=== PATIENT | male | born 1940 | race Caucasian/White ===

== ENCOUNTER 2023-01-11 07:55 | Outpatient (CLI) | payer MEDICARE, SELFPAY ==
--- NOTE | ~2023-01-11 | CT_ITS ---
Clinical Indication: COPD, abnormal liver enzymes, diarrhea, tachypnea CT Scan of the Chest, Abdomen, and Pelvis with Contrast: Technique: Contiguous sections were acquired throughout the chest, abdomen, and pelvis after intraven ous administration of 150 cc of Omnipaque 350. Dose reduction technique was used on this scan by uti lizing automated exposure control and iterative reconstruction technique. The dose-length product (DL P) was 453.47 mGy-cm. Findings: There is no evidence of any significant mediastinal, hilar or axillary lymphadenopathy. The mediastin al soft tissues appear normal. No large central pulmonary embolus. No aortic aneurysm or dissection. There is no evidence of pleural or pericardial effusion. There is moderate to advanced emphysema with biapical scarring. The liver, spleen, gallbladder, adrenals and kidneys are within normal limits. There is fatty infiltr ation the pancreas compatible atrophic changes, question mild peripancreatic inflammatory stranding. There are atherosclerotic calcifications of the aorta. No lymphadenopathy. No bowel obstruction or bowel wall thickening. There is no evidence to suggest acute appendicitis. Urinary bladder is unremarkable. Prostate gland is enlarged. Impression: Moderate to advanced emphysema with biapical scarring. Suspected mild pancreatitis. Correlate clinically. Enlarged prostate gland. Reviewed, dictated and finalized at [facility]. Impression: Moderate to advanced emphysema with biapical scarring. Suspected mild pancreatitis. Correlate clinically. Enlarged prostate gland.
--- NOTE | ~2023-01-11 | US_ITS ---
EXAMINATION: US carotid duplex BI DATE: 01/11/2023 10:25 INDICATION: Carotid bruit. TECHNIQUE: Grayscale, color Doppler, and pulsed Doppler images of the cervical carotid arteries were obtained. The degree of vessel stenosis is placed in one of the following categories: normal, <50%, 5 0-69%, >=70% but less than near-occlusion, near-occlusion, or total occlusion. Note that percent sten osis relative to normal distal artery lumen diameter is indirectly measured from velocity measurement s as described by Daniele, et al. Radiology 2003; 229:340-346. COMPARISON: None. FINDINGS: RIGHT: The right common carotid artery (CCA) peak systolic velocity (PSV) is 86 cm/s. The right internal car otid artery (ICA) PSV is 115 cm/s. The right ICA end-diastolic velocity (EDV) is 43 cm/s. The right I CA/CCA PSV ratio is 1.3. Grayscale and color Doppler images yield an estimate of <50% diameter reduct ion from plaque in the ICA. There is antegrade flow in the right vertebral artery. LEFT: The left CCA PSV is 93 cm/s. The left ICA PSV is 84 cm/s. The left ICA EDV is 32 cm/s. The left ICA/C CA PSV ratio is 0.9. Grayscale and color Doppler images yield an estimate of <50% diameter reduction from plaque in the ICA. There is antegrade flow in the left vertebral artery. IMPRESSION: 1. <50% stenosis in the right internal carotid artery. 2. <50% stenosis in the left internal carotid artery. Reviewed, dictated and finalized at location A.
--- NOTE | ~2023-01-11 | US_ITS ---
EXAMINATION: US arterial ankle brachial ind DATE: 01/11/2023 10:26 INDICATION: Peripheral arterial disease. TECHNIQUE: Segmental pressures and plethysmographic and Doppler waveforms of the brachial and lower e xtremity arteries were obtained. COMPARISON: None. FINDINGS: Right and left brachial artery pressures of 127 mm Hg and 125 mm Hg, respectively, are concordant (no rmal difference <= 30 mmHg). The right ankle-brachial index (JANNIE) is 0.91 (normal >= 0.9-1.0). The right great toe-brachial index (TBI) is 0.51 (normal >= 0.65). Arterial Doppler waveforms are biphasic at the ankle. The left JANNIE is 0.87. The left TBI is 0.50. Arterial Doppler waveforms are biphasic at the ankle. IMPRESSION: 1. Mildly decreased ABIs, consistent with arterial occlusive disease. Reviewed, dictated and finalized at location A.
--- NOTE | ~2023-01-11 | CT_ITS ---
EXAMINATION: CTA abd aorta runoff DATE: 01/11/2023 08:50 INDICATION: Peripheral arterial disease. TECHNIQUE: Computed tomographic angiography (CTA) of the abdominal, pelvis, and both lower extremitie s was performed with 150 mL Omnipaque-350 intravenous contrast. Automated exposure control and iterat dino reconstruction technique were employed. The dose-length product was 596.24 mGy-cm. Maximum intens ity projection 3D-reconstructions of the arteries were created by the technologist on a separate work station. COMPARISON: None. FINDINGS: ABDOMINAL AORTA AND ITS BRANCHES: Abdominal aorta is normal in caliber. There is calcified atherosclerosis of the aorta and many of the other arteries. There is no significant stenosis of celiac axis, superior mesenteric artery, the re nal arteries, or inferior mesenteric artery. PELVIC VASCULATURE: There is no significant stenosis of the common iliac arteries or external iliac arteries. There is mo derate stenosis of right internal iliac artery. RIGHT LOWER EXTREMITY VASCULATURE: There is mild stenosis of right common femoral artery and superficial femoral artery. There is no sig nificant stenosis of right deep femoral artery. There is no significant stenosis of popliteal artery, peroneal artery, anterior tibial artery, or posterior tibial artery. LEFT LOWER EXTREMITY VASCULATURE: There is mild stenosis of left common femoral artery and superficial femoral artery. There is no sign ificant stenosis of the deep femoral artery. There is no significant stenosis of popliteal artery, pe roneal artery, anterior tibial artery, or posterior tibial artery. ADDITIONAL FINDINGS: The visualized portions of the lung bases demonstrate emphysema and mild atelectasis. No pleural effu ellen. The heart size is normal. No pericardial effusion. Calcifications in the liver and spleen are c onsistent with old granulomatous disease. The gallbladder, pancreas, and adrenal glands are normal. T here are cysts in the kidneys measuring up to 6 mm on the right. There are no dilated loops of bowel. The appendix is normal. There is a mildly enlarged gastrohepatic lymph node, likely reactive. There is no free intraperitoneal fluid. The prostate is moderately enlarged. There is moderate lower lumbar spondylosis. IMPRESSION: 1. Bilateral three-vessel runoff. Reviewed, dictated and finalized at location A.
--- NOTE | 2023-01-11 08:24 | ECG_ITS ---
Measurements Intervals [place] Rate: 106 P: 84 ND: 146 QRS: 79 QRSD: 79 T: 64 QT: 329 QTc: 438 Interpretive Statements SINUS TACHYCARDIA BASELINE ARTIFACT- I, II, III, AVR, AVL, AVF, V1, V5-V6 ABNORMAL ECG NO PREVIOUS ECG AVAILABLE FOR COMPARISON Electronically Signed On 01-11-2023 10:32:11 CDT by Anirudh Montemayor D.O.
[2023-01-11 08:45] VITALS: PULSE 105; O2SAT 98
[2023-01-11 08:50] VITALS: PULSE 110; O2SAT 89
--- NOTE | 2023-01-11 09:01 | HOMEO2EVAL ---
Evaluation was performed at [facility] [place] Home Oxygen Evaluation RC: Home Oxygen (O2) Evaluation Start: 01/11/23 08:55 Freq: Status: Active Protocol: RPE Activity Type Activity Date Activity User E-sign Co-sign Detail Recorded Client Recorded Date Recorded By Document 01/11/23 08:45 TEODORA [email or web address] 01/11/23 09:00 SJB Document 01/11/23 08:50 SJB [email or web address] 01/11/23 09:00 SJB 01/11/23 01/11/23 08:45 08:50 Home O2 Evaluation [Oxygen] -Test Phase Resting Exercise -Oxygen Delivery Room Air Room Air [Pulse Oximetry] -Pulse Oximetry (90-100 %) 98 89 L [Pulse Rate] -Pulse Rate (60-100 beats/min) 105 H 110 H [Evaluation] -Activity Tolerance Good -Rating of Perceived Dyspnea (PD) +1 Mild, Noticeable to the Participant but Not to an Observer -Rate of Perceived Exertion (PE) 11 Fairly light Query Text:Click the Protocol Button to View the RPE Scale [Exercise] -Ambulation Distance (feet) 150 -Ambulation Distance (meters) 45.71 [Comments] -Home Oxygen Evaluation Comments Will begin home Pt walked O2 eval on approx 150 ft room air. on room air. Walks very quickly. Sp02 remained at 89% and above. [Charges] -Treatment Charges O2 Evaluation - Outpatient
== END 2023-01-11 07:56 | disposition home or self-care (01) ==
LOC: CHSIMG 08:01
PROVIDERS: PCP Internal Medicine; Visit Provider Internal Medicine
DX: I73.9 Peripheral vascular disease, unspecified (principal); J44.9 Chronic obstructive pulmonary disease, unspecified; R00.0 Tachycardia, unspecified; R09.89 Other specified symptoms and signs involving the circulatory and respiratory systems; I65.23 Occlusion and stenosis of bilateral carotid arteries; N40.0 Benign prostatic hyperplasia without lower urinary tract symptoms; R94.31 Abnormal electrocardiogram [ECG] [EKG]
CPT/HCPCS: 71260; 74177; 75635; 93005; 93880; 93922; 94618; Q9967

== ENCOUNTER 2023-01-16 15:12 | Outpatient (CLI) | payer MEDICARE, SELFPAY ==
--- NOTE | 2023-01-16 01:00 | ECHO_ITS ---
Patient Info Name: Kirk Jo Age: 82 years : 1940 Gender: Male Ht: 68 in Wt: 140 lbs BSA: 1.74 m2 HR: 108 bpm BP: 114 / 68 mmHg Heart Rhythm: Tachycardia Technical Quality: Poor Exam Date: 01/16/2023 3:27 PM Exam Location: [facility] Patient Status: Outpatient Admit Date: 01/16/2023 Staff Ordering Physician: Celina Geiger MD Bus Driver/Monitor: [email or web address] Attending Provider: Celina Geiger MD Referring Physician: Juanjo LUTZ; Exam Type: CA echo doppler color flow Study Info Indications - PAD/COPD Complete two-dimensional, color flow and Doppler transthoracic echocardiogram is performed. Summary 1. Complete two-dimensional, color flow and Doppler transthoracic echocardiogram is performed. 2. Technically suboptimal study due to poor sonographic images. 3. Left ventricular chamber dimension is normal. 4. Left ventricular systolic function is normal, estimated at 60-65%. 5. The left ventricular diastolic function is grade I diastolic dysfunction. 6. E/e' 8 is minimally elevated. Left Ventricle Technically suboptimal study due to poor sonographic images. E/e' 8 is minimally elevated. Left ventricular chamber dimension is normal. Left ventricular systolic function is normal, estimated at 60-65%. The left ventricular diastolic function is grade I diastolic dysfunction. Right Ventricle Right ventricular chamber dimension is normal. Right ventricular systolic function is normal. Left Atria Left atrial chamber dimension is normal. Right Atria Right atrial chamber dimension is normal. Aortic Valve The aortic valve is not well visualized. Cannot determine number of aortic valve leaflets. There is no aortic valve stenosis. There is no aortic valve regurgitation. Pulmonic Valve The pulmonic valve is not well visualized. Mitral Valve There is no mitral valve stenosis. There is no mitral valve regurgitation. Tricuspid Valve The tricuspid valve leaflets are not well visualized. There is no tricuspid valve regurgitation. Pericardium/Pleural There is no pericardial effusion. Inferior Vena Cava Inferior vena cava is not well visualized. Aorta The aortic root size at the sinus of Valsalva is normal. Left Ventricular Outflow Tract Name Value Normal LVOT 2D LVOT Diameter 2.0 cm LVOT Doppler LVOT Peak Velocity 78 cm/s LVOT Peak Gradient 2 mmHg LVOT Mean Gradient 1 mmHg LVOT VTI 18 cm LVOT VTI/AV VTI Ratio 1.2 LVOT Stroke Volume 58 ml Mitral Valve Name Value Normal MV Doppler MV Decel [place] 428 cm/s2 MV PHT 30 ms MV Area (PHT) 7.2 cm2 4.0-5.0 MV Diastolic Function MV E Peak Velocity
== END 2023-01-16 15:13 | disposition home or self-care (01) ==
LOC: CHSIMG 15:14
PROVIDERS: PCP Internal Medicine; Visit Provider Internal Medicine
DX: I73.9 Peripheral vascular disease, unspecified (principal); J44.9 Chronic obstructive pulmonary disease, unspecified; R09.89 Other specified symptoms and signs involving the circulatory and respiratory systems; R00.0 Tachycardia, unspecified
CPT/HCPCS: 93306

== ENCOUNTER 2023-02-10 11:47 | Outpatient (CLI) | payer MEDICARE, SELFPAY ==
[2023-02-10 12:37] LABS: Alanine Aminotransferase 21 U/L (16-63); Albumin Level 2.7 g/dL (3.4-5.0); Alkaline Phosphatase 65 U/L (46-116); Anion Gap 10 mmol/L (8-16); Aspartate Amino Transferase 28 U/L (15-37); Bilirubin,Total 0.4 mg/dL (0.00-1.00); Blood Urea Nitrogen 7 mg/dL (7-18); Calcium 8.4 mg/dL (8.5-10.1); Carbon Dioxide 26 mmol/L (21-32); Chloride 100 mmol/L (98-108); Estimated Glomerular Filt Rate > 60; Glucose 116 mg/dL (70-99); Lactate Dehydrogenase 301 U/L (85-227); Osmolality Calculated 281 mOsm/kg (285-295); Potassium 4.6 mmol/L (3.5-5.1); Sodium 136 mmol/L (136-145); Total Protein 6.5 g/dL (6.4-8.2); Uric Acid 5.1 mg/dL (3.5-7.2)
[2023-02-10 15:13] LABS: Appearance Urine Clear (Clear); Bilirubin Urine Negative (Negative); Blood Urine Trace-Intact (Negative); Color Urine Light Yellow (Yellow); Glucose Urine UA Negative (Negative); Ketones Urine Negative (Negative); Leukocyte Esterase Ur 3+ LEU/UL (Negative); Nitrate Urine Negative (Negative); Protein Urine Negative (Negative); Specific Grav Ur <= 1.005 (1.010-1.020); Urobilinogen Urine 0.2 mg/dL (0.2-1.0)
[2023-02-10 15:20] LABS: Add Urine Microscopic? YES; Bacteria Urine 1+ /hpf; RBC Urine 0-2 /hpf (0-2); Renal Epithelial Cells Urine Rare /hpf; Squamous Epithelial Cell Urine Rare /hpf (Few)
[2023-02-15 09:49] LABS: Reference Lab Test Name FLOW CYTOMETRY
== END 2023-02-10 11:48 | disposition home or self-care (01) ==
PROVIDERS: PCP Internal Medicine; Visit Provider Internal Medicine
DX: D72.829 Elevated white blood cell count, unspecified (principal); D64.9 Anemia, unspecified; E79.0 Hyperuricemia without signs of inflammatory arthritis and tophaceous disease; N39.0 Urinary tract infection, site not specified
CPT/HCPCS: 36415; 80053; 81001; 83615; 84550; 87040; 87086; 87088; 88184; 88185; 88189

== ENCOUNTER 2023-03-30 14:25 | Outpatient (CLI) | payer MEDICARE, SELFPAY ==
[2023-03-30 14:42] LABS: Basophils Absolute Auto 0.2 K/mm3 (0.0-0.1); Basophils Percent Auto 1.3 % (0.2-1.2); Eosinophils Absolute Auto 0.6 K/mm3 (0-0.3); Eosinophils Percent Auto 4.8 % (0-4.4); Hematocrit 35.3 % (42.0-52.0); Hemoglobin 11.2 g/dL (14.0-18.0); Immature Granulocyte Absolute 0.09 K/mm3 (0.00-0.031); Immature Granulocyte Percent A 0.8 % (0-0.5); Lymphocytes Percent Auto 14.6 % (18.3-44.2); Mean Corpuscular HGB Conc 31.7 g/dl (32-36); Mean Corpuscular Hemoglobin 29.2 pg (26-34); Mean Corpuscular Volume 92.2 fl (80-100); Mean Platelet Volume 8.8 fl (7.4-10.4); Monocytes Percent Auto 8.7 % (2.6-8.5); Neutrophils Absolute Auto 8.1 K/mm3 (1.3-6.7); Neutrophils Percent Auto 69.8 % (45.5-73.1); Platelet Count Result 500 k/mm3 (150-375); Red Blood Count 3.83 M/mm3 (4.6-6.20); Red Cell Distribution Width 17.6 % (11.5-14.5); White Blood Count 11.7 K/mm3 (4.5-10.0)
[2023-03-30 16:47] LABS: Iron 31 ug/dL (49-181)
[2023-03-30 16:54] LABS: Alanine Aminotransferase 15 U/L (6-50); Albumin Level 4.2 g/dL (3.5-5.1); Alkaline Phosphatase 77 U/L (38-126); Anion Gap 9 mmol/L (8-16); Aspartate Amino Transferase 26 U/L (17-59); Bilirubin,Total 0.3 mg/dL (0.2-1.3); Blood Urea Nitrogen 8 mg/dL (9-20); Calcium 8.7 mg/dL (8.4-10.2); Carbon Dioxide 24 mmol/L (22-30); Chloride 100 mmol/L (98-107); Estimated Glomerular Filt Rate > 60; Glucose 101 mg/dL (65-110); Potassium 3.9 mmol/L (3.4-5.0); Sodium 133 mmol/L (137-145)
[2023-03-30 16:57] LABS: Percent Iron Saturation 8 % (20-50)
[2023-03-30 18:17] LABS: Folic Acid > 20.0 ng/mL (2.76->20); Vitamin B12 > 1000.0 pg/mL (239-931)
[2023-04-02 11:18] LABS: Erythropoietin (EPO) 29.2 mIU/mL (2.6-18.5)
== END 2023-03-30 14:26 | disposition home or self-care (01) ==
LOC: ANHLAB 14:28
PROVIDERS: PCP Internal Medicine; Visit Provider Internal Medicine Hematology & Oncology
DX: D72.829 Elevated white blood cell count, unspecified (principal); D64.9 Anemia, unspecified
CPT/HCPCS: 36415; 80053; 82607; 82668; 82728; 82746; 83540; 83550; 85025; 86140

== ENCOUNTER 2023-04-07 09:39 | Outpatient (CLI) | payer MEDICARE, SELFPAY ==
[2023-04-11 15:23] LABS: BCR/abl Prior Result Not Given
[2023-04-11 16:11] LABS: BCR/abl P190 Not Detected; BCR/abl P210 Not Detected
[2023-04-11 16:12] LABS: BCR/abl P190 Chg YES; BCR/abl P210 Chg YES
[2023-04-14 10:13] LABS: CALR Exon 9 Mutation Not Detected (Not Detected); CSF3R Exon 14/17 Mutation Not Detected (Not Detected); JAK2 Exon 12 Mutation Not Detected (Not Detected); JAK2 V617F Mutation Not Detected (Not Detected); MPL Exon 10 Mutation Not Detected (Not Detected); Specimen Source Blood
== END 2023-04-07 09:40 | disposition home or self-care (01) ==
LOC: ANHLAB 09:42
PROVIDERS: PCP Internal Medicine; Visit Provider Internal Medicine Hematology & Oncology
DX: D47.3 Essential (hemorrhagic) thrombocythemia (principal); D72.829 Elevated white blood cell count, unspecified
CPT/HCPCS: 36415; 81206; 81207; 81219; 81270; 81279; 81339; 81479

== ENCOUNTER 2024-01-25 10:25 | Outpatient (CLI) | payer MEDICARE, SELFPAY ==
--- NOTE | ~2024-01-25 | CT_ITS ---
CT Scan of the Chest without Contrast: Clinical Indication: Dyspnea, COPD Technique: Contiguous sections were acquired throughout the chest without intravenous contrast. Dose reduction technique was used on this scan by utilizing automated exposure control and iterative recon struction technique. The dose-length product (DLP) was 201.42 mGy-cm. COMPARISON: 01/11/2023 Findings: There is no evidence of any significant mediastinal, hilar or axillary lymphadenopathy. The mediastin al soft tissues appear normal. There is no evidence of pleural or pericardial effusion. There is moderate to advanced emphysema, with biapical scarring. 1.1 cm nodule in the left lower lobe and the perihilar region is similar to prior exam, possibly minimally increased (axial image 73). Images through the upper abdomen reveal stable small left adrenal nodule, likely adenoma. Impression: Moderate to advanced emphysema. Stable to minimally increased 1.1 cm nodule in the left lower lobe, as detailed above. Reviewed, dictated and finalized at [facility]. Impression: Moderate to advanced emphysema. Stable to minimally increased 1.1 cm nodule in the left lower lobe, as detailed above.
== END 2024-01-25 10:26 | disposition home or self-care (01) ==
LOC: CHSIMG 10:27
PROVIDERS: PCP Internal Medicine; Visit Provider Internal Medicine
DX: Z12.2 Encounter for screening for malignant neoplasm of respiratory organs (principal); J44.9 Chronic obstructive pulmonary disease, unspecified; R91.1 Solitary pulmonary nodule
CPT/HCPCS: 71250

== ENCOUNTER 2024-02-25 12:30 | Emergency (ER) | payer MEDICARE, SELFPAY ==
--- NOTE | ~2024-02-25 | XR_ITS ---
EXAMINATION: XR lumbar spine 2-3V DATE: 02/25/2024 15:37 INDICATION: Low back pain. TECHNIQUE: 3 views of lumbar spine were obtained. COMPARISON: CT abdomen and pelvis 01/11/2023 FINDINGS: Bone alignment is normal. There is a compression fracture of L4 with 2/5 loss of height. Th ere is mild chronic anterior wedging of T12 vertebral body. There are endplate osteophytes at all lev els. There is mildly decreased disc height at L5-S1. 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 There are surgical clips in the abdomen. IMPRESSION: 1. Age-indeterminate L4 compression fracture, new from 01/11/2023. 2. Mild lumbar spondylosis. Reviewed, dictated and finalized at location E.
--- NOTE | ~2024-02-25 | CT_ITS ---
EXAMINATION: CT brain wo con DATE: 02/25/2024 15:36 INDICATION: Altered mental status. Confusion. TECHNIQUE: Computed tomography (CT) of the head was performed without intravenous contrast. The mA wa s adjusted according to patient size. Iterative reconstruction technique was employed. The dose-lengt h product was 681.00 mGy-cm. 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 There are scattered areas of low attenu ation in the cerebral white matter, which is within normal limits for the patient's age. There is no intracranial hemorrhage, acute infarction, or abnormal intracranial mass lesion. The ventricles are n ormal in size. There is cortical thickening in the renal sinuses. There are changes of right mastoide ctomy. There are likely changes of ocular lens replacement surgeries. IMPRESSION: 1. 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 Reviewed, dictated and finalized at location E.
--- NOTE | ~2024-02-25 | XR_ITS ---
EXAMINATION: XR chest 2V DATE: 02/25/2024 15:36 INDICATION: Altered mental status. Confusion. TECHNIQUE: Frontal and lateral views of the chest were obtained on 3 radiographs. COMPARISON: Chest 2 views 07/07/2008, chest CT 01/25/2024 FINDINGS: The lungs are hyperexpanded with lucencies, consistent with emphysema. There is mild scarri ng at the lung apices. No pleural effusion or pneumothorax. The heart size is normal. There are surgi meryl clips in the abdomen. IMPRESSION: 1. Emphysema. Reviewed, dictated and finalized at location E. IMPRESSION: 1. Emphysema.
[2024-02-25 12:30] VITALS: BP 169/80; PULSE 97; RESP 18; TEMP 36.4; O2SAT 98
--- NOTE | 2024-02-25 12:58 | ED.AMS ---
HPI - Altered Mental Status General Chief Complaint: Altered Mental Status Stated Complaint: confusion x 1week Time Seen by Provider: 02/25/24 12:43 Source: patient and family Mode of arrival: ambulatory Limitations: no limitations History of Present Illness HPI narrative: patient is an 83-year-old male with lower back pain and some increased confusion on his baseline dementia for the past 2 weeks. No other complaints at this time. No head or neck injuries. No headache or blurry vision. No chest pain or shortness of breath. MD complaint: confusion Onset (ago): week(s) (2) Timing confirmed by: family member Severity: moderate Consistency of symptoms: getting Worse Context: other ( Baseline dementia) Associated symptoms: denies other symptoms Related Data Allergies Allergy/AdvReac Type Severity Reaction Status Date / Time No Known Allergies Allergy Verified 02/25/24 13:30 Review of Systems Review of Systems: All systems reviewed & are unremarkable except as noted in HPI and below Constitutional: Constitutional: Reports no additional constitutional complaints Eyes: Eyes: Reports no additional eye complaints ENT: Reports system reviewed and no additional complaints, except as documented Cardiovascular: Cardiovascular: Reports no additional cardiovascular complaints Respiratory: Respiratory: Reports no additional respiratory complaints Gastrointestinal: Gastrointestinal: Reports no additional gastrointestinal complaints Genitourinary: Genitourinary: Reports no additional male genitourinary complaints Musculoskeletal: Musculoskeletal: Reports no additional musculoskeletal complaints Integumentary/Breasts: Skin/Breast: Reports system reviewed and no additional complaints, except as docu Neurologic: Reports system reviewed and no additional complaints, except as documented Psychiatric: Psychiatric: Reports no additional psychiatric complaints Endocrine: Endocrine: Reports no additional endocrine complaints Hematologic/Lymphatic: Hematologic/Lymphatic: Reports no additional hematologic/lymphatic complaints Allergic/Immunologic: Allergic/Immunologic: Reports no additional allergic/immunologic complaints Exam Const: General: healthy appearing Nutritional Appearance: well nourished Orientation/consciousness: patient oriented x3 HENMT: Head: normal to inspection Ears: external ears normal Face/Nose/Sinus: Normal external nose present Eyes: Conjunctivae: conjunctivae normal Pupils: Equal, round and reactive pupils present EOM: EOMs intact bilaterally Neck: Neck: normal visual inspection Chest: Chest palpation & inspection: normal inspection of the chest Resp: Effort & Inspection: normal respiratory effort and not labored Auscultation: clear to auscultation bilaterally Cardio: Rate: regular rate Rhythm: regular rhythm Heart sounds: no murmurs GI: Inspection: non-distended GI Palp: Yes Soft to palpation and No Tenderness to palpation present (GI) Auscultation: normal bowel sounds : General: Yes bladder normal to palpation Back/Spine/Pelvis: Back: no CVA tenderness Skin: General skin exam: normal color Rashes: no rashes Wounds: no wounds Neuro: General: patient oriented x3 Cranial nerves: Yes Nystagmus not present Speech: normal speech Extrem: General: normal to inspection Psych: Mental Status: mental status grossly normal Affect: normal affect Attitude: cooperative Course Vital Signs Vital signs: Vital Signs Temperature 36.4 C 02/25/24 12:30 Pulse Rate 97 02/25/24 12:30 Respiratory Rate 18 02/25/24 12:30 Blood Pressure 169/80 H 02/25/24 12:30 Pulse Oximetry 98 02/25/24 12:30 Oxygen Delivery Room Air 02/25/24 12:30 Temperature 36.4 C 02/25/24 12:30 Pulse Rate 97 02/25/24 12:30 Respiratory Rate 18 02/25/24 12:30 Blood Pressure 169/80 H 02/25/24 12:30 Pulse Oximetry 98 02/25/24 13:15 Oxygen Delivery Room Air 02/25/24 12:30 MDM
--- NOTE | 2024-02-25 13:12 | ECG_ITS ---
Test Date: 2024-02-25 13:22:10 Measurements Intervals [place] Rate: 76 P: 77 SD: 162 QRS: 69 QRSD: 90 T: 61 QT: 382 QTc: 430 Interpretive Statements SINUS RHYTHM BASELINE ARTIFACT- I, II, III, AVR, AVL, AVF, V4-V6 NORMAL ECG No previous ECG available for comparison Electronically Signed On 02-26-2024 06:22:01 CDT by Anirudh Montemayor D.O.
[2024-02-25 13:15] VITALS: O2SAT 98
[2024-02-25 14:00] LABS: Basophils Absolute Auto 0.19 K/mm3 (0.00-0.10); Basophils Percent Auto 1.6 % (0.0-1.0); Eosinophils Absolute Auto 0.54 K/mm3 (0.02-0.50); Eosinophils Percent Auto 4.6 % (1.0-6.0); Hematocrit 40.2 % (37.0-46.0); Hemoglobin 13.8 g/dL (12.4-15.3); Immature Granulocyte Absolute 0.08 K/mm3 (0.00-0.00); Immature Granulocyte Percent A 0.7 % (0.0-0.0); Lymphocytes Absolute Auto 1.68 K/mm3 (1.10-4.50); Lymphocytes Percent Auto 14.3 % (18.0-42.0); Mean Corpuscular HGB Conc 34.3 g/dL (32-36); Mean Corpuscular Hemoglobin 32.7 pg (27.0-31.0); Mean Corpuscular Volume 95.3 fL (78.0-102.0); Mean Platelet Volume 8.9 fl (8.7-11.0); Monocytes Absolute Auto 0.91 K/mm3 (0.10-0.90); Monocytes Percent Auto 7.8 % (2.0-11.0); Neutrophils Absolute Auto 8.33 K/mm3 (1.70-7.20); Platelet Count Result 351 K/mm3 (150-420); Red Blood Count 4.22 M/mm3 (4.70-6.10); Red Cell Distribution Width 13.3 % (11.6-14.4); White Blood Count 11.7 K/mm3 (4.8-10.8)
[2024-02-25 14:21] LABS: Alanine Aminotransferase 12 U/L (16-63); Albumin Level 3.5 g/dL (3.4-5.0); Alkaline Phosphatase 63 U/L (46-116); Anion Gap 12 mmol/L (4-12); Aspartate Amino Transferase 17 U/L (15-37); Bilirubin,Total 0.4 mg/dL (0.00-1.00); Blood Urea Nitrogen 9 mg/dL (7-18); Calcium 8.8 mg/dL (8.5-10.1); Carbon Dioxide 25 mmol/L (21-32); Chloride 93 mmol/L (98-108); Estimated CRCL calculation 67 ml/min; Estimated Glomerular Filt Rate > 60; Glucose 95 mg/dL (70-99); Osmolality Calculated 268 mOsm/kg (285-295); Potassium 4.1 mmol/L (3.5-5.1); Sodium 130 mmol/L (136-145); Total Protein 7.1 g/dL (6.4-8.2); Troponin I 5.3 ng/L (0.00-60.4)
[2024-02-25 14:53] LABS: Appearance Urine Clear (Clear); Bilirubin Urine Negative (Negative); Blood Urine Negative (Negative); Color Urine Yellow (Yellow); Glucose Urine UA Negative (Negative); Ketones Urine Trace (Negative); Leukocyte Esterase Ur Negative LEU/UL (Negative); Nitrate Urine Negative (Negative); Protein Urine Negative (Negative); Urobilinogen Urine 0.2 mg/dL (0.2-1.0)
[2024-02-25 14:59] LABS: Add Urine Microscopic? NO
[2024-02-25 15:30] VITALS: BP 148/80; PULSE 80; RESP 18; O2SAT 92
[2024-02-25 16:15] VITALS: BP 167/78; PULSE 78; RESP 20; O2SAT 94
== END 2024-02-25 16:15 | disposition home or self-care (01) ==
PROVIDERS: Emergency Provider Emergency Medicine; PCP Internal Medicine
DX: M54.50 Low back pain, unspecified (principal); G30.8 Other Alzheimer's disease
CPT/HCPCS: 36415; 70450; 71046; 72100; 80053; 81003; 84484; 85025; 93005; 99284

== ENCOUNTER 2024-05-13 09:20 | Outpatient (CLI) | payer MEDICARE, SELFPAY ==
--- NOTE | ~2024-05-13 | CT_ITS ---
EXAMINATION:CT diagnostic chest wo con DATE: 05/13/2024 09:48 INDICATION: Pulmonary nodule. TECHNIQUE: Computed tomography (CT) of the chest was performed without intravenous contrast. Automate d exposure control and iterative reconstruction technique were employed. The dose-length product (DLP ) was 108.72 mGy-cm. COMPARISON: Chest CT 01/25/2024, 01/11/2023 FINDINGS: There is severe emphysema. There is chronic scarring at the lung apices. There is mild scar ring in paraspinal right lower lobe. There is an 8 mm nodule in perihilar left lower lobe, decreased from 11 mm on 01/25/2024 and 9 mm on 01/11/2023, likely benign. There is mild atelectasis bilaterally. Calcified right lung nodules and calcified right hilar lymph nodes are consistent with old granulomat ous disease. No pleural effusion. The heart size is normal. No pericardial effusion. There are surgic al changes around the gastroesophageal junction. There are bridging endplate osteophytes at multiple levels in the spine, consistent with diffuse idiopathic skeletal hyperostosis (DISH). IMPRESSION: 1. Improved left lower lobe pulmonary nodule, likely benign. 2. Severe emphysema. Reviewed, dictated and finalized at location A.
== END 2024-05-13 09:21 | disposition home or self-care (01) ==
LOC: CHSIMG 09:23
PROVIDERS: PCP Internal Medicine; Visit Provider Internal Medicine
DX: R91.1 Solitary pulmonary nodule (principal); J43.9 Emphysema, unspecified
CPT/HCPCS: 71250

== ENCOUNTER 2024-05-22 09:03 | Outpatient (CLI) | payer MEDICARE, SELFPAY ==
[2024-05-22] VITALS (8 sets, daily range): PULSE 78–107; O2SAT 93–98
--- NOTE | 2024-05-22 09:53 | HOMEO2EVAL ---
Evaluation was performed at [facility] Home Oxygen Evaluation RC: Home Oxygen (O2) Evaluation Start: 05/22/24 09:42 Freq: Status: Active Protocol: RPE Activity Type Activity Date Activity User E-sign Co-sign Detail Recorded Client Recorded Date Recorded By Document 05/22/24 09:12 RES [id number] 05/22/24 09:46 RES Document 05/22/24 09:13 RES [id number] 05/22/24 09:46 RES Document 05/22/24 09:14 RES [id number] 05/22/24 09:46 RES Document 05/22/24 09:15 RES [id number] 05/22/24 09:53 RES Document 05/22/24 09:16 RES [id number] 05/22/24 09:53 RES Document 05/22/24 09:17 RES [id number] 05/22/24 09:53 RES Document 05/22/24 09:18 RES [id number] 05/22/24 09:53 RES Document 05/22/24 09:19 RES [id number] 05/22/24 09:53 RES 05/22/24 05/22/24 05/22/24 09:12 09:13 09:14 Home O2 Evaluation [Oxygen] -Test Phase Resting Exercise Exercise -Oxygen Delivery Room Air Room Air Room Air -Fraction of Inspired Oxygen (%) 21 21 21 [Pulse Oximetry] -Pulse Oximetry (90-100 %) 98 97 94 [Pulse Rate] -Pulse Rate (60-100 beats/min) 78 92 97 [Evaluation] -Activity Tolerance Good Good Good -Rating of Perceived Dyspnea (PD) +2 Mild, Some +2 Mild, Some +3 Moderate Difficulty, Difficulty, Difficulty, But Noticeable to Noticeable to Can Continue the Observer the Observer -Rate of Perceived Exertion (PE) 11 Fairly light 12 12 Query Text:Click the Protocol Button to View the RPE Scale [Comments] -Home Oxygen Evaluation Comments Patient did have to stop and take breaks 5 times throughout walk for about 30 seconds each time. [Charges] -Evaluation Charges O2 Evaluation Charge 05/22/24 05/22/24 05/22/24 09:15 09:16 09:17 Home O2 Evaluation [Oxygen] -Test Phase Exercise Exercise Exercise -Oxygen Delivery Room Air Room Air Room Air -Fraction of Inspired Oxygen (%) 21 21 21 [Pulse Oximetry] -Pulse Oximetry (90-100 %) 97 95 94 [Pulse Rate] -Pulse Rate (60-100 beats/min) 96 99 103 H [Evaluation] -Activity Tolerance Good Good Good -Rating of Perceived Dyspnea (PD) +3 Moderate +3 Moderate +3 Moderate Difficulty, But Difficulty, But Difficulty, But Can Continue Can Continue Can Continue -Rate of Perceived Exertion (PE) 13 Somewhat 14 14 Query Text:Click the Protocol Button Hard to View the RPE Scale [Comments] -Home Oxygen Evaluation Comments [Charges] -Evaluation Charges 05/22/24 05/22/24 09:18 09:19 Home O2 Evaluation [Oxygen] -Test Phase Exercise Resting -Oxygen Delivery Room Air Room Air -Fraction of Inspired Oxygen (%) 21 21 [Pulse Oximetry] -Pulse Oximetry (90-100 %) 94 93 [Pulse Rate] -Pulse Rate (60-100 beats/min) 105 H 107 H [Evaluation] -Activity Tolerance Good Good -Rating of Perceived Dyspnea (PD) +3 Moderate +3 Moderate Difficulty, But Difficulty, But Can Continue Can Continue -Rate of Perceived Exertion (PE) 15 Hard 15 Hard Query Text:Click the Protocol Button to View the RPE Scale [Comments] -Home Oxygen Evaluation Comments [Charges] -Evaluation Charges
== END 2024-05-22 09:04 | disposition home or self-care (01) ==
LOC: CHSCARD 09:08
PROVIDERS: PCP Internal Medicine; Visit Provider Internal Medicine
DX: J44.9 Chronic obstructive pulmonary disease, unspecified (principal); R09.02 Hypoxemia
CPT/HCPCS: 94618

== ENCOUNTER 2024-09-09 09:16 | Outpatient (CLI) | payer MEDICARE, SELFPAY ==
--- NOTE | ~2024-09-09 | CT_ITS ---
CTA chest PE protocol Ordering provider: Celina Geiger MD History: 84 years Male with . Elevated D Dimer, SOB,COPD,PREVIOUS SMOKER, X MONTHS-WORSE . Comparison: May 13, 2024 Technique: CT angiogram chest was performed following timed intravenous injection of contrast. Thin s lice axial images and reformatted coronal images were obtained. Three dimensional reformatted images of the chest were also obtained using a [employer] workstation. . Automated exposure control and iterati ve reconstruction technique were employed. The dose-length product was 411.47 mGy-cm. 100 mL Omnipaque 350 was given IV. Findings: PULMONARY ARTERIES: No pulmonary embolus. VISUALIZED THORACIC INLET: Normal. MEDIASTINUM: Aorta/coronary arteries: Mild atheromatous disease. Heart/other: The heart is not enlarged. Lymph nodes: No mediastinal adenopathy. Right hilar lymphadenopathy. LUNGS: No pulmonary nodules or masses. No infiltrates or effusions. No pneumothorax. Emphysematous changes o f the lungs. VISUALIZED UPPER ABDOMEN: Possible minimal fat stranding in the area of the head of the pancreas. Cli nical correlation and further evaluation advised. Postoperative changes in the area of the gastroesop hageal junction. Otherwise, the visualized upper abdomen is normal. MUSCULOSKELETAL: Soft tissues: The superficial soft tissues are normal. Bones: Compression fracture of T7 most likely acute. Clinical correlation advised. Compression fractu re of L1 is also seen in both. In the right. MRI evaluation advised. Age appropriate degenerative marybeth nges of the spine. IMPRESSION: 1. No pulmonary embolism. 2. No acute cardiopulmonary pathology. 3. Compression fracture of T6 and L2. MRI evaluation advised. Reviewed, dictated and finalized at location A. [employer]ATE SECRETARY
--- NOTE | ~2024-09-09 | XR_ITS ---
XR chest 2V Ordering provider: Celina Geiger MD History: 84 years Male with . cough/COPD,SOB,RT SIDE CP,PREVIOUS SMOKER . Comparison: February 25, 2024 FINDINGS: MEDIASTINUM: The cardiac silhouette is not enlarged. LUNGS: No infiltrates, effusions or pneumothorax. Emphysematous changes OTHER: No free air under the diaphragm. Degenerative changes of the spine. IMPRESSION: No acute cardiopulmonary pathology. Reviewed, dictated and finalized at location A. GENCY DOCTOR
[2024-09-09 10:07] LABS: Basophils Absolute Auto 0.21 K/mm3 (0.00-0.10); Basophils Percent Auto 2.2 % (0.0-1.0); Eosinophils Absolute Auto 0.63 K/mm3 (0.02-0.50); Eosinophils Percent Auto 6.6 % (1.0-6.0); Hematocrit 38.7 % (37.0-46.0); Hemoglobin 12.5 g/dL (12.4-15.3); Immature Granulocyte Absolute 0.09 K/mm3 (0.00-0.00); Immature Granulocyte Percent A 0.9 % (0.0-0.0); Lymphocytes Absolute Auto 1.64 K/mm3 (1.10-4.50); Lymphocytes Percent Auto 17.3 % (18.0-42.0); Mean Corpuscular HGB Conc 32.3 g/dL (32-36); Mean Corpuscular Hemoglobin 29.4 pg (27.0-31.0); Mean Corpuscular Volume 91.1 fL (78.0-102.0); Mean Platelet Volume 9.1 fl (8.7-11.0); Monocytes Absolute Auto 0.89 K/mm3 (0.10-0.90); Monocytes Percent Auto 9.4 % (2.0-11.0); Neutrophils Absolute Auto 6.02 K/mm3 (1.70-7.20); Neutrophils Percent Auto 63.6 % (50.0-70.0); Platelet Count Result 478 K/mm3 (150-420); Red Blood Count 4.25 M/mm3 (4.70-6.10); White Blood Count 9.5 K/mm3 (4.8-10.8)
[2024-09-09 10:26] LABS: Strep Group A RT-PCR NOT DETECTED (Negative)
[2024-09-09 10:31] LABS: Influenza A QL RT-PCR Negative (Negative); Influenza B QL RT-PCR Negative (Negative); RSV RNA, RT-PCR Negative (Negative); SARS-CoV-2 RNA PCR Negative (Negative)
[2024-09-09 10:34] LABS: Alanine Aminotransferase 17 U/L (16-63); Albumin Level 3.8 g/dL (3.4-5.0); Alkaline Phosphatase 96 U/L (46-116); Anion Gap 9 mmol/L (4-12); Aspartate Amino Transferase 16 U/L (15-37); Bilirubin,Total 0.5 mg/dL (0.00-1.00); Blood Urea Nitrogen 7 mg/dL (7-18); CRP 1.5 mg/dL (0.0-0.9); Calcium 8.9 mg/dL (8.5-10.1); Carbon Dioxide 28 mmol/L (21-32); Chloride 97 mmol/L (98-108); D Dimer 0.81 mg/L (0.19-0.50); Estimated Glomerular Filt Rate > 60; Glucose 112 mg/dL (70-99); NT Pro B Type Natriuretic Pept 506 pg/mL (0-450); Osmolality Calculated 277 mOsm/kg (285-295); Potassium 4.3 mmol/L (3.5-5.1); Sodium 134 mmol/L (136-145); Total Protein 7.3 g/dL (6.4-8.2)
[2024-09-09 11:10] LABS: Erythrocyte Sedimentation Rate 37 mm/hr (0-20)
[2024-09-12 23:53] LABS: C. pneumoniae Ab (IgM) <1:10 titer; C. psittaci Ab (IgG) <1:64 titer; C. psittaci Ab (IgM) <1:10 titer; C. trachomatis Ab (IgM) <1:10 titer
== END 2024-09-09 09:17 | disposition home or self-care (01) ==
PROVIDERS: PCP Internal Medicine; Visit Provider Internal Medicine
DX: R05.9 Cough, unspecified (principal); Z11.3 Encounter for screening for infections with a predominantly sexual mode of transmission; J18.9 Pneumonia, unspecified organism; J44.1 Chronic obstructive pulmonary disease with (acute) exacerbation; J44.0 Chronic obstructive pulmonary disease with (acute) lower respiratory infection; R06.00 Dyspnea, unspecified; M48.54XA Collapsed vertebra, not elsewhere classified, thoracic region, initial encounter for fracture
CPT/HCPCS: 36415; 71046; 71275; 80053; 83880; 85025; 85380; 85652; 86140; 86631; 86632; 86738; 87040; 87637; 87651; Q9967